=== PATIENT | female | born 2000 | race Caucasian/White ===

== ENCOUNTER 2022-03-02 16:36 | Emergency (ER) | payer SELFPAY ==
[2022-03-02 17:06] VITALS: BP 114/72; PULSE 61; RESP 20; TEMP 98.2; BMI 45.7
[2022-03-02 18:39] LABS: URINE APPEARANCE CLEAR; URINE BILIRUBIN NEGATIVE (NEGATIVE); URINE COLOR YELLOW; URINE GLUCOSE (UA) NEGATIVE (NEGATIVE); URINE KETONE NEGATIVE (NEGATIVE); URINE LEUK ESTERASE NEGATIVE (NEGATIVE); URINE NITRITE NEGATIVE (NEGATIVE); URINE PROTEIN NEGATIVE (NEGATIVE); URINE UROBILINOGEN 0.2 mg/dL (0.2-1.0)
[2022-03-02 18:42] LABS: HCG,QUALITATIVE URINE Negative
== END 2022-03-02 20:30 | disposition home or self-care (01) ==
LOC: JERFT 16:36 → JER 16:36 → JERFT 20:30
DX: N89.8 Other specified noninflammatory disorders of vagina (principal); R10.84 Generalized abdominal pain
CPT/HCPCS: 36415; 81003; 84703; 87070; 87077; 87086; 87205; 87491; 87591; 99283-25